=== PATIENT | female | born 1975 | race African-American/Black ===

== ENCOUNTER 2016-05-08 09:55 | Emergency (ER) | payer OTHER ==
[~2016-05-08] VITALS: Ht 142.2 cm; Wt 107.0 kg
[2016-05-08 10:56] LABS: BASO # 0.1 x10^3/uL (0.0-0.2); BASO % 1 % (0-3); EOS % 3 % (0-3); HEMATOCRIT 45.8 % (36.0-47.0); HEMOGLOBIN 15.3 g/dL (12.0-15.5); LYMPH # 4.6 x10^3/uL (1.0-4.8); LYMPH % 36 % (24-48); MEAN CORPUSCULAR HEMOGLOBIN 31 pg (25-35); MEAN CORPUSCULAR HGB CONC 33 g/dL (31-37); MEAN CORPUSCULAR VOLUME 93 fL (79-100); MONO % 8 % (0-9); NEUT % 52 % (31-73); PLATELET COUNT 302 x10^3/uL (140-400); RED BLOOD COUNT 4.91 x10^6/uL (3.50-5.40); RED CELL DISTRIBUTION WIDTH 14.6 % (11.5-14.5); WHITE BLOOD COUNT 12.6 x10^3/uL (4.0-11.0)
--- NOTE | 2016-05-08 10:58 | RAD ---
Chest, 2 views, 05/08/2016: History: Chest pain Comparison is made to a study from 03/25/2007. The heart is at the upper limits of normal in size. The pulmonary vascularity is normal. No pulmonary infiltrates are seen. There is no evidence of pleural fluid. Minimal spurring is present in the spine. IMPRESSION: No acute cardiopulmonary abnormality is detected.
[2016-05-08] MEDS ORDERED: ASPIRIN 81 MG TAB.CHEW PO ONE (11:00)
[2016-05-08] MEDS ORDERED: LABETALOL 20 MG/4 ML DISP.SYRIN. IVP ONE ×2 (11:00→11:15)
[2016-05-08 11:05] LABS: ANION GAP 8 (6-14); BLOOD UREA NITROGEN 13 mg/dL (7-20); CALCIUM 9.3 mg/dL (8.5-10.1); CARBON DIOXIDE 28 mmol/L (21-32); CHLORIDE 105 mmol/L (98-107); CREATININE 0.7 mg/dL (0.6-1.0); GFR 112.1; GLUCOSE 95 mg/dL (70-99); POTASSIUM 3.9 mmol/L (3.5-5.1); SODIUM 141 mmol/L (136-145)
[2016-05-08 11:12] LABS: ALBUMIN 3.5 g/dL (3.4-5.0); ALK PHOS 100 U/L (46-116); ALT (SGPT) 23 U/L (14-59); AST (SGOT) 17 U/L (15-37); DIRECT BILIRUBIN < 0.1 mg/dL (0.0-0.2); TOTAL BILIRUBIN 0.2 mg/dL (0.2-1.0); TOTAL PROTEIN 7.8 g/dL (6.4-8.2)
[2016-05-08 11:14] LABS: OBC FLU VALID
[2016-05-08] MEDS ORDERED: ALBUTEROL SULFATE 2.5 MG/3 ML NEBU. NEB ONE (11:15)
--- NOTE | 2016-05-08 11:15 | PHYS DOC ---
Adult General Chief Complaint Chief Complaint: CHEST WALL PAIN HPI HPI 40-year-old female presenting to the emergency department with cough fever or muscle aches and chills at home. She also complains of chest pain that is sharp moderate pain that is nonradiating and worse with deep inspiration. She denies any personal or family history of blood clotting disorders. She denies recent immobilization, hemoptysis, unilateral leg swelling. She has a history of hypertension and has hyperlipidemia for which she takes a statin. Review of systems is negative for abdominal pain nausea vomiting or diaphoresis. All other review of systems is negative unless otherwise noted in history of present illness. Review of Systems Review of Systems SEE ABOVE. Current Medications Current Medications Current Medications Medications (Trade) Dose Ordered Sig/Emily Start Time Stop Time Status Last Admin Dose Admin Albuterol Sulfate (Ventolin Neb Soln) 2.5 mg 1X ONCE 05/08/16 11:15 05/08/16 11:19 DC 05/08/16 11:19 2.5 MG Aspirin (Children'S Aspirin) 324 mg 1X ONCE 05/08/16 11:00 05/08/16 11:01 DC 05/08/16 10:32 324 MG Labetalol HCl (Normodyne) 20 mg 1X ONCE 05/08/16 11:15 05/08/16 11:16 DC Allergies Allergies Allergies Coded Allergies Type Severity Reaction Last Updated Verified adhesive Allergy Intermediate 05/08/16 No Physical Exam Physical Exam Constitutional: Well developed, well nourished, no acute distress, non-toxic appearance. HENT: Normocephalic, atraumatic, bilateral external ears normal, oropharynx moist, no oral exudates, nose normal. [] Eyes: PERRLA, EOMI, conjunctiva normal, no discharge. Neck: Normal range of motion, no tenderness, supple, no stridor. [] Cardiovascular:Heart rate regular rhythm, no murmur [] Lungs & Thorax: Mild wheezing bilaterally. No crackles present. Abdomen: Bowel sounds normal, soft, no tenderness, no masses, no pulsatile masses. Skin: Warm, dry, no erythema, no rash. [] Back: No tenderness, no CVA tenderness. [] Extremities: No tenderness, no cyanosis, no clubbing, ROM intact, no edema. Neurologic: Alert and oriented X 3, normal motor function, normal sensory function, no focal deficits noted. [] Psychologic: Affect normal, judgement normal, mood normal. [] Current Patient Data Vital Signs Vital Signs Date Time Temp Pulse Resp B/P Pulse Ox O2 Delivery O2 Flow Rate FiO2 05/08/16 10:38 63 206/118 94 Lab Values Laboratory Tests Test 05/08/16 10:04 05/08/16 10:10 Influenza Type A Antigen Negative (NEGATIVE) Influenza Type B Antigen Negative (NEGATIVE) White Blood Count 12.6x10^3/uL (4.0-11.0) H Red Blood Count 4.91x10^6/uL (3.50-5.40) Hemoglobin 15.3g/dL (12.0-15.5) Hematocrit 45.8% (36.0-47.0) Mean Corpuscular Volume 93fL (79-100) Mean Corpuscular Hemoglobin 31pg (25-35) Mean Corpuscular Hemoglobin Concent 33g/dL (31-37) Red Cell Distribution Width 14.6% (11.5-14.5) H Platelet Count 302x10^3/uL (140-400) Neutrophils (%) (Auto) 52% (31-73) Lymphocytes (%) (Auto) 36% (24-48) Monocytes (%) (Auto) 8% (0-9) Eosinophils (%) (Auto) 3% (0-3) Basophils (%) (Auto) 1% (0-3) Neutrophils # (Auto) 6.5x10^3uL (1.8-7.7) Lymphocytes # (Auto) 4.6x10^3/uL (1.0-4.8) Monocytes # (Auto) 1.1x10^3/uL (0.0-1.1) Eosinophils # (Auto) 0.4x10^3/uL (0.0-0.7) Basophils # (Auto) 0.1x10^3/uL (0.0-0.2) Sodium Level 141mmol/L (136-145) Potassium Level 3.9mmol/L (3.5-5.1) Chloride Level 105mmol/L (98-107) Carbon Dioxide Level 28mmol/L (21-32) Anion Gap 8 (6-14) Blood Urea Nitrogen 13mg/dL (7-20) Creatinine 0.7mg/dL (0.6-1.0) Estimated GFR (Cockcroft-Gault) 112.1 Glucose Level 95mg/dL (70-99) Calcium Level 9.3mg/dL (8.5-10.1) Total Bilirubin 0.2mg/dL (0.2-1.0) Direct Bilirubin < 0.1mg/dL (0.0-0.2) Aspartate Amino Transferase (AST) 17U/L (15-37) Alanine Aminotransferase (ALT) 23U/L (14-59) Alkaline Phosphatase 100U/L (46-116) Troponin I Quantitative < 0.017ng/mL (0.000-0.055) PW-Ufe-G-Type Natriuretic Peptide 36pg/mL (0-124) Total Protein 7.8g/dL (6.4-8.2) Albumin 3.5g/dL (3.4-5.0) Lipase 131U/L (73-393) Laboratory Tests 05/08/16 10:10 Laboratory Tests 05/08/16 10:10 EKG EKG []EKG shows sinus rhythm with regular rate. Normal intervals. Normal axis. ST segments are congruent. Not suggestive of ACS. Reviewed by myself. Radiology/Procedures Radiology/Procedures [] Course & Med Decision Making Course & Med Decision Making Pertinent Labs and Imaging studies reviewed. (See chart for details) [] 40-year-old female presenting to the emergency department with cough congestion fevers muscle aches and chest pain. Vitals showed significant hypertension which improved on labetalol administration. Otherwise afebrile. Physical exam showed mild wheezing in the lungs. Otherwise EKG was unremarkable. Blood work shows nonspecific leukocytosis. Chemistry panel. Troponin negative. The patient was given an albuterol nebulizer while in the emergency department which mildly improved her symptoms. Chest x-ray neg. On reevaluation she was feeling mildly improved. She was subsequent discharged home to follow up with her primary care doctor for further evaluation workup and care in the outpatient setting over the next 2-3 days. I recommended the patient follow up with her primary care doctor for blood pressure management. Dragon Disclaimer Dragon Disclaimer This electronic medical record was generated, in whole or in part, using a voice recognition dictation system. Departure Departure Impression: Primary Impression: Cough Additional Impressions: Muscle ache Rhinorrhea Chest pain Severe hypertension Disposition: HOME, SELF-CARE Condition: STABLE Referrals: VALERI MCCARTY (PCP) Patient Instructions: Chest Pain (Nonspecific), Cough, Adult Additional Instructions: Thank you for allowing us to participate in your care today. Followup with your primary care physician in 3 days if your symptoms do not improve. If you do not have a primary care provider you can ask for a list of our primary care providers. Return to the emergency department you have any new or concerning findings. This should be evaluated by the primary care physician and any necessary consulting services for continued management within a few days after discharge. Return to emergency room if you have any new or concerning symptoms including but not limited to fever, chills, nausea, vomiting, intractable pain, any new rashes, chest pain, shortness of air, uncontrolled bleeding, difficulty breathing, and/or vision loss. Problem Qualifiers MC MACDONALD MD May 08, 2016 11:15
[2016-05-08 11:46] VITALS: BP 102/65
--- NOTE | 2016-05-08 14:20 | EKG ---
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
== END 2016-05-08 12:18 | disposition home or self-care (01) ==
LOC: ER 09:55
DX: R05 Cough (principal); R07.89 Other chest pain; M79.1 Myalgia; J34.89 Other specified disorders of nose and nasal sinuses; I10 Essential (primary) hypertension; E78.5 Hyperlipidemia, unspecified; R50.9 Fever, unspecified; Z88.8 Allergy status to other drugs, medicaments and biological substances
CPT/HCPCS: 36415; 71020; 80048; 80076; 81025; 83690; 83880; 84484; 85027; 87804; 93005; 94250; 94640; 96374; 96376; 99285; J3490

== ENCOUNTER 2017-07-02 10:46 | Emergency (ER) | payer OTHER | END 2017-07-02 13:45 | disposition home or self-care (01) | LOC: ER 10:46 | DX: I73.9 Peripheral vascular disease, unspecified (principal); I10 Essential (primary) hypertension; E78.00 Pure hypercholesterolemia, unspecified; Z90.710 Acquired absence of both cervix and uterus; Z88.8 Allergy status to other drugs, medicaments and biological substances | CPT/HCPCS: 93926; 93971; 99284-25 ==

== ENCOUNTER 2019-01-20 11:50 | Emergency (ER) | payer OTHER ==
[~2019-01-20] VITALS: Ht 142.2 cm; Wt 101.2 kg
[~2019-01-20 11:50] MED LIST: ACET325T9 PO; CITA20TA6 PO; HYDR25TA PO; IBUP-1060 PO; LEVO500T59 PO; LURA60TA PO; PRED20TA PO; TRAZ-86 PO; amlodipine PO; lisinopril-HCTZ PO
[2019-01-20] MEDS ORDERED: amLODIPine BESYLATE 5 MG TABLET PO ONE (12:00)
[2019-01-20] MEDS ORDERED: ASPIRIN 325 MG TABLET PO ONE (12:00)
[2019-01-20] MEDS ORDERED: LISINOPRIL 10 MG TABLET PO ONE (12:00)
[2019-01-20] MEDS ORDERED: NITROGLYCERIN SUBLINGUAL 0.4 MG BOTTLE OF 25. SL PRN (12:00)
[2019-01-20] MEDS ORDERED: hydroCHLOROthiazide 12.5 MG CAPSULE PO ONE (12:00)
[2019-01-20] MEDS ORDERED: MORPHINE SULFATE 2 MG/ML VIAL. IV/SQ PRN (12:00)
--- NOTE | 2019-01-20 12:22 | PHYS DOC ---
Past Medical History Past Medical History: Anxiety, Depression, High Cholesterol, Hypertension Past Surgical History: , Hysterectomy Additional Past Surgical Histo: Ankle Alcohol Use: None Drug Use: None Adult General Chief Complaint Chief Complaint: CHEST PAIN HPI HPI Patient is a 43 year old female with a history of anxiety, depression, high cholesterol, hypertension, current smoker, who presents to the ED today complaining of 10 out of 10 substernal chest pain nonradiating and described as sharp and intermittent that has been going on since 3 AM. Patient states the pain was worse this morning when she got up to use the bathroom. She denies the pain waking her up. She states she was already up trying to use the restroom specifically to void when the pain began. Denies anything specifically elevating the pain. She also reports she is out of her blood pressure medicines. She has been out for the last 2 weeks Review of Systems Review of Systems Constitutional: Denies fever or chills [] Eyes: Denies change in visual acuity, redness, or eye pain [] HENT: Denies nasal congestion or sore throat [] Respiratory: Denies cough or shortness of breath [] Cardiovascular: Reports chest pain GI: Denies abdominal pain, nausea, vomiting, bloody stools or diarrhea [] : Denies dysuria or hematuria [] Musculoskeletal: Denies back pain or joint pain [] Integument: Denies rash or skin lesions [] Neurologic: Denies headache, focal weakness or sensory changes [] All other systems were reviewed and found to be within normal limits, except as documented in this note. Current Medications Current Medications Current Medications Medications (Trade) Dose Ordered Sig/[facility] Start Time Stop Time Status Last Admin Dose Admin Amlodipine Besylate (Norvasc) 10 mg 1X ONCE 01/20/19 12:00 01/20/19 12:05 DC 01/20/19 12:46 10 MG Aspirin (Soco Aspirin) 325 mg 1X ONCE 01/20/19 12:00 01/20/19 12:05 DC 01/20/19 12:46 325 MG Hydrochlorothiazide (Microzide) 12.5 mg 1X ONCE 01/20/19 12:00 01/20/19 12:05 DC 01/20/19 12:44 12.5 MG Lisinopril (Prinivil) 10 mg 1X ONCE 01/20/19 12:00 01/20/19 12:05 DC 01/20/19 12:45 10 MG Morphine Sulfate (Morphine Sulfate) 2 mg PRN Q15MIN PRN 01/20/19 12:00 01/21/19 11:59 Nitroglycerin (Nitrostat) 0.4 mg PRN Q5MIN PRN 01/20/19 12:00 01/21/19 11:59 Allergies Allergies Allergies Coded Allergies Type Severity Reaction Last Updated Verified adhesive Allergy Intermediate 06/15/17 Yes Physical Exam Physical Exam Constitutional: Well developed, well nourished, no acute distress, non-toxic appearance. [] HENT: Normocephalic, atraumatic, bilateral external ears normal, oropharynx moist, no oral exudates, nose normal. [] Eyes: PERRLA, EOMI, conjunctiva normal, no discharge. [] Neck: Normal range of motion, no tenderness, supple, no stridor. [] Cardiovascular:Heart rate regular rhythm, no murmur [] Lungs & Thorax: Bilateral breath sounds clear to auscultation [] Abdomen: Bowel sounds normal, soft, no tenderness, no masses, no pulsatile masses. [] Skin: Warm, dry, no erythema, no rash. [] Back: No tenderness, no CVA tenderness. [] Extremities: No tenderness, no cyanosis, no clubbing, ROM intact, no edema. [] Neurologic: Alert and oriented X 3, normal motor function, normal sensory function, no focal deficits noted. [] Psychologic: Affect normal, judgement normal, mood normal. [] Current Patient Data Vital Signs Vital Signs Date Time Temp Pulse Resp B/P (MAP) Pulse Ox O2 Delivery O2 Flow Rate FiO2 01/20/19 12:46 58 191/94 01/20/19 12:02 97.8 16 97 Room Air 97.8 Lab Values Laboratory Tests Test 01/20/19 12:37 01/20/19 13:35 01/20/19 15:21 White Blood Count 10.6 x10^3/uL (4.0-11.0) Red Blood Count 4.69 x10^6/uL (3.50-5.40) Hemoglobin 14.7 g/dL (12.0-15.5) Hematocrit 44.1 % (36.0-47.0) Mean Corpuscular Volume 94 fL (79-100) Mean Corpuscular Hemoglobin 31 pg (25-35) Mean Corpuscular Hemoglobin Concent 33 g/dL (31-37) Red Cell Distribution Width 14.5 % (11.5-14.5) Platelet Count 345 x10^3/uL (140-400) Neutrophils (%) (Auto) 61 % (31-73) Lymphocytes (%) (Auto) 31 % (24-48) Monocytes (%) (Auto) 6 % (0-9) Eosinophils (%) (Auto) 2 % (0-3) Basophils (%) (Auto) 1 % (0-3) Neutrophils # (Auto) 6.4 x10^3/uL (1.8-7.7) Lymphocytes # (Auto) 3.3 x10^3/uL (1.0-4.8) Monocytes # (Auto) 0.6 x10^3/uL (0.0-1.1) Eosinophils # (Auto) 0.2 x10^3/uL (0.0-0.7) Basophils # (Auto) 0.1 x10^3/uL (0.0-0.2) Sodium Level 143 mmol/L (136-145) Potassium Level 4.0 mmol/L (3.5-5.1) Chloride Level 106 mmol/L (98-107) Carbon Dioxide Level 27 mmol/L (21-32) Anion Gap 10 (6-14) Blood Urea Nitrogen 11 mg/dL (7-20) Creatinine 0.8 mg/dL (0.6-1.0) Estimated GFR (Cockcroft-Gault) 94.7 BUN/Creatinine Ratio 14 (6-20) Glucose Level 93 mg/dL (70-99) Calcium Level 9.2 mg/dL (8.5-10.1) Magnesium Level 2.0 mg/dL (1.8-2.4) Total Bilirubin 0.2 mg/dL (0.2-1.0) Aspartate Amino Transferase (AST) 24 U/L (15-37) Alanine Aminotransferase (ALT) 23 U/L (14-59) Alkaline Phosphatase 90 U/L (46-116) Creatine Kinase 131 U/L (26-192) Creatine Kinase MB (Mass) 0.8 ng/mL (0.0-3.6) Creatine Kinase MB Relative Index 0.6 % (0-4) Troponin I Quantitative < 0.017 ng/mL (0.000-0.055) TT-Sub-L-Type Natriuretic Peptide 150 pg/mL (0-124) H Total Protein 7.7 g/dL (6.4-8.2) Albumin 3.5 g/dL (3.4-5.0) Albumin/Globulin Ratio 0.8 (1.0-1.7) L Thyroid Stimulating Hormone (TSH) 0.935 uIU/mL (0.358-3.74) Urine Collection Type Unknown Urine Color Yellow Urine Clarity Clear Urine pH 7.5 Urine Specific [place] 1.020 Urine Protein Negative mg/dL (NEG-TRACE) Urine Glucose (UA) Negative mg/dL (NEG) Urine Ketones (Stick) Negative mg/dL (NEG) Urine Blood Negative (NEG) Urine Nitrite Negative (NEG) Urine Bilirubin Negative (NEG) Urine Urobilinogen Dipstick 1.0 mg/dL (0.2 mg/dL) Urine Leukocyte Esterase Small (NEG) Urine RBC Occ /HPF (0-2) Urine WBC 5-10 /HPF (0-4) Urine Squamous Epithelial Cells Mod /LPF Urine Bacteria Few /HPF (0-FEW) Urine Mucus Mod /LPF Urine Opiates Screen Neg (NEG) Urine Methadone Screen Neg (NEG) Urine Barbiturates Neg (NEG) Urine Phencyclidine Screen Neg (NEG) Urine Amphetamine/Methamphetamine Neg (NEG) Urine Benzodiazepines Screen Neg (NEG) Urine Cocaine Screen Neg (NEG) Urine Cannabinoids Screen Pos (NEG) Urine Ethyl Alcohol Neg (NEG) POC Troponin I 0.00 ng/ml (<0.08) Laboratory Tests 01/20/19 12:37 Laboratory Tests 01/20/19 12:37 EKG EKG [address] Campos sinus rhythm HR 64 no STEMI[] Radiology/Procedures Radiology/Procedures []PROCEDURE: PORTABLE CHEST 1V PORTABLE CHEST 1V 01/20/2019 11:35 AM INDICATION: Chest pain COMPARISON: 06/11/2017 TECHNIQUE: Portable frontal view of the chest is provided. FINDINGS: The cardiomediastinal silhouette is similar in appearance. Lungs are clear. There are no significant pleural effusions. There is no pulmonary vascular congestion. No pneumothorax. IMPRESSION: There is no acute cardiopulmonary process. Electronically signed by: Jackeline Short MD (01/20/2019 12:29 PM) [facility] DICTATED and SIGNED BY: JACKELINE SHORT MD DATE: 01/20/19 4834 Course & Med Decision Making Course & Med Decision Making Pertinent Labs and Imaging studies reviewed. (See chart for details) This is a 43-year-old female patient presented to the ED today complaining of substernal chest pain that began this morning at 3 AM, patient also reports she has not taken her blood pressure medications for 2 weeks. She states she ran out of the medications and has been too busy to see her PCP. She is a smoker advised to consider smoking cessation. Blood pressures on arrival to the ED 190's/ 90s. Patient was given her blood pressure medicines in the ED. BP was in the 140s over 80s prior to discharge. EKG is negative, chest x-ray is negative, CBC, CMP, troponin-no acute findings. Heart score 2 Patient was offered admission to the hospital, she declined stating she cannot stand the hospital because she will miss work tomorrow morning. Repeat troponin was also done which was negative I spoke to patient about the need to follow-up with her PCP as well as [facility]. She is provided return precautions and discharged in stable condition. Dragon Disclaimer Dragon Disclaimer This electronic medical record was generated, in whole or in part, using a voice recognition dictation system. The HEART Score for CP Pts HEART Score for Chest Pain: HEART Score for Chest Pain Response (Comments) Value History Slighlty/Non-Suspicious 0 ECG Normal 0 Age < 45 0 Risk Factors >3 Risk Factors or Hx CAD 2 Troponin < Normal Limit (allergies) 0 Total 2 Risk Factors: Risk Factors: DM, Current or recent (<one month) smoker, HTN, HLP, family history of CAD, obesity. Risk Scores: Score 0 - 3: 2.5% MACE over next 6 weeks - Discharge Home Score 4 - 6: 20.3% MACE over next 6 weeks - Admit for Clinical Observation Score 7 - 10: 72.7% MACE over next 6 weeks - Early Invasive Strategies Departure Departure Impression: Primary Impression: Chest pain Additional Impression: Accelerated hypertension Disposition: 01 HOME, SELF-CARE Condition: STABLE Referrals: VALERI MCCARTY (PCP) follow up in the course of this week JOS HAWKINS MD follow up in the course of this week Patient Instructions: Chest Pain (Nonspecific), Hypertension Additional Instructions: You were evaluated in the emergency room for chest pain and high blood pressure. Please follow-up with the provided [facility] as soon as possible. Please follow-up with your primary care doctor as soon as possible. Please take your prescribed medications as ordered. Scripts Amlodipine Besylate (AMLODIPINE BESYLATE) 10 Mg Tablet 10 MG PO DAILY, #30 TAB Prov: MICHAEL PEREZ APRN 01/20/19 Lisinopril/Hydrochlorothiazide (LISINOPRIL-HCTZ 10-12.5 MG TAB) 1 Each Tablet 1 TAB PO DAILY, #30 TAB 5 Refills Prov: MICHAEL PEREZ APRN 01/20/19 Problem Qualifiers Primary Impression: Chest pain Chest pain type: unspecified Qualified Codes: R07.9 - Chest pain, unspecified MICHAEL PEREZ APRN Jan 20, 2019 12:22
--- NOTE | 2019-01-20 12:32 | RAD ---
PORTABLE CHEST 1V 01/20/2019 11:35 AM INDICATION: Chest pain COMPARISON: 06/11/2017 TECHNIQUE: Portable frontal view of the chest is provided. FINDINGS: The cardiomediastinal silhouette is similar in appearance. Lungs are clear. There are no significant pleural effusions. There is no pulmonary vascular congestion. No pneumothorax. IMPRESSION: There is no acute cardiopulmonary process. Electronically signed by: Lauren Arnold MD (01/20/2019 12:29 PM) [facility]
[2019-01-20 12:51] LABS: BASO # 0.1 x10^3/uL (0.0-0.2); BASO % 1 % (0-3); EOS # 0.2 x10^3/uL (0.0-0.7); EOS % 2 % (0-3); HEMATOCRIT 44.1 % (36.0-47.0); HEMOGLOBIN 14.7 g/dL (12.0-15.5); LYMPH # 3.3 x10^3/uL (1.0-4.8); LYMPH % 31 % (24-48); MEAN CORPUSCULAR HEMOGLOBIN 31 pg (25-35); MEAN CORPUSCULAR HGB CONC 33 g/dL (31-37); MEAN CORPUSCULAR VOLUME 94 fL (79-100); MONO # 0.6 x10^3/uL (0.0-1.1); MONO % 6 % (0-9); NEUT # 6.4 x10^3/uL (1.8-7.7); NEUT % 61 % (31-73); PLATELET COUNT 345 x10^3/uL (140-400); RED BLOOD COUNT 4.69 x10^6/uL (3.50-5.40); RED CELL DISTRIBUTION WIDTH 14.5 % (11.5-14.5); WHITE BLOOD COUNT 10.6 x10^3/uL (4.0-11.0)
[2019-01-20 13:03] LABS: CALCIUM 9.2 mg/dL (8.5-10.1); CREATININE 0.8 mg/dL (0.6-1.0); GFR 94.7
[2019-01-20 13:08] LABS: ALBUMIN 3.5 g/dL (3.4-5.0); ALBUMIN/GLOBULIN RATIO 0.8 (1.0-1.7); TOTAL BILIRUBIN 0.2 mg/dL (0.2-1.0); TOTAL PROTEIN 7.7 g/dL (6.4-8.2)
[2019-01-20 13:43] LABS: BILIRUBIN,URINE NEGATIVE (NEG); CLARITY,URINE CLEAR; COLOR,URINE YELLOW; NITRITE,URINE NEGATIVE (NEG); PH,URINE 7.5; PROTEIN,URINE NEGATIVE (NEG-TRACE)
[2019-01-20 13:55] LABS: BARBITURATES NEG (NEG); BENZODIAZEPINES NEG (NEG); CANNABINOIDS POS (NEG); COCAINE NEG (NEG); METHADONE NEG (NEG); OPIATES NEG (NEG); PHENCYCLIDINE NEG (NEG)
[2019-01-20 13:58] LABS: SQUAMOUS EPITHELIAL CELL,UR MOD /LPF
[2019-01-20 13:59] LABS: AMPHETAMINE/METHAMPHETAMINE NEG (NEG); BACTERIA,URINE FEW /HPF (0-FEW); RBC,URINE OCC /HPF (0-2)
--- NOTE | 2019-01-20 14:32 | EKG ---
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
[2019-01-20 15:26] VITALS: BP 167/54
[2019-01-20] MEDS ORDERED: LISI1TAB23 PO (15:49)
[2019-01-20] MEDS ORDERED: AMLO10TA8 PO (15:49)
== END 2019-01-20 16:07 | disposition home or self-care (01) ==
LOC: ER 11:50
DX: R07.89 Other chest pain (principal); I10 Essential (primary) hypertension; F41.9 Anxiety disorder, unspecified; F32.9 Major depressive disorder, single episode, unspecified; E78.00 Pure hypercholesterolemia, unspecified; Z90.710 Acquired absence of both cervix and uterus
CPT/HCPCS: 36415; 71045; 80053; 80307; 81001; 82553; 83735; 83880; 84443; 84484; 85025; 93005; 99285

== ENCOUNTER 2021-08-08 07:39 | Inpatient (IN) | payer OTHER ==
[~2021-08-08] VITALS: Ht 142.2 cm; Wt 91.2 kg
[~2021-08-08 07:39] MED LIST changes: +AMLO-187 PO; +LISI1TAB35 PO; +TRAZ-123 PO; -TRAZ-86 PO
[2021-08-08] MEDS ORDERED: PANTOPRAZOLE IV PUSH 40 MG VIAL. IVP ONE (08:00)
[2021-08-08] MEDS ORDERED: LIDO:MAALOX 1:1 20 ML SINGLE DOSE. SWSW ONE (08:00)
[2021-08-08] MEDS ORDERED: IV NORMAL SALINE 1000ML BAG 1,000 ML IV ONE (08:00)
[2021-08-08] MEDS ORDERED: MORPHINE SULFATE 4 MG/ML INJ. IV PRN (08:00)
[2021-08-08] MEDS ORDERED: ONDANSETRON PF 4 MG/2 ML VIAL. IVP ONE (08:00)
--- NOTE | 2021-08-08 08:11 | PHYS DOC ---
Past Medical History Past Medical History: Anxiety, Depression, High Cholesterol, Hypertension Past Surgical History: , Hysterectomy Additional Past Surgical Histo: Ankle Smoking Status: Current Every Day Smoker Alcohol Use: None Drug Use: None Adult General Chief Complaint Chief Complaint: ABDOMINAL PAIN HPI HPI Patient is a 46 year old female presenting to the emergency department for epigastric and left upper quadrant abdominal pain that she says has been going on for at least the past 2 days. She says it is sharp and burning and is constant for the past 2 days and that nothing seems to make it better or worse including eating drinking movements or activity. She denies any nausea vomiting diarrhea constipation dysuria hematuria vaginal bleeding or vaginal discharge. She has had 2 prior C-sections but no other abdominal surgeries. She is in no acute distress with normal vital signs. Review of Systems Review of Systems Constitutional: Denies fever or chills [] Eyes: Denies change in visual acuity, redness, or eye pain [] HENT: Denies nasal congestion or sore throat [] Respiratory: Denies cough or shortness of breath [] Cardiovascular: No additional information not addressed in HPI [] GI: + abdominal pain. No nausea, vomiting, bloody stools or diarrhea [] : Denies dysuria or hematuria [] Musculoskeletal: Denies back pain or joint pain [] Integument: Denies rash or skin lesions [] Neurologic: Denies headache, focal weakness or sensory changes [] All other systems were reviewed and found to be within normal limits, except as documented in this note. Current Medications Current Medications Current Medications Medications (Trade) Dose Ordered Sig/Emily Start Time Stop Time Status Last Admin Dose Admin Ceftriaxone Sodium (Rocephin) 2 gm 1X ONCE 08/08/21 09:15 08/08/21 09:16 DC Morphine Sulfate (Morphine Sulfate) 4 mg 1X PRN 08/08/21 08:00 08/08/21 08:15 4 MG Multi-Ingredient Mouthwash/Gargle (Gi Cocktail) 20 ml 1X ONCE 08/08/21 08:00 08/08/21 08:01 DC 08/08/21 08:15 20 ML Ondansetron HCl (Zofran) 4 mg 1X ONCE 08/08/21 08:00 08/08/21 08:01 DC 08/08/21 08:14 4 MG Pantoprazole Sodium (PROTONIX VIAL for IV PUSH) 40 mg 1X ONCE 5/29/22 08:00 08/08/21 08:01 DC 08/08/21 08:14 40 MG Sodium Chloride 1,000 ml @ 1,000 mls/hr 1X ONCE 08/08/21 08:00 08/08/21 08:59 DC 08/08/21 08:16 1,000 MLS/HR Allergies Allergies Allergies Coded Allergies Type Severity Reaction Last Updated Verified adhesive Allergy Intermediate 06/15/17 Yes Physical Exam Physical Exam Constitutional: Well developed, well nourished, no acute distress, non-toxic appearance. [] HENT: Normocephalic, atraumatic, bilateral external ears normal, oropharynx mois t, no oral exudates, nose normal. [] Eyes: PERRLA, EOMI, conjunctiva normal, no discharge. [] Neck: Normal range of motion, no tenderness, supple, no stridor. [] Cardiovascular:Heart rate regular rhythm, no murmur [] Lungs & Thorax: Bilateral breath sounds clear to auscultation [] Abdomen: Bowel sounds normal, soft, + epigastric and LUQ ttp. No rebound or guarding. Skin: Warm, dry, no erythema, no rash. [] Back: No tenderness, no CVA tenderness. [] Extremities: No tenderness, no cyanosis, no clubbing, ROM intact, no edema. [] Neurologic: Alert and oriented X 3, normal motor function, normal sensory function, no focal deficits noted. [] Current Patient Data Vital Signs Vital Signs Date Time Temp Pulse Resp B/P (MAP) Pulse Ox O2 Delivery O2 Flow Rate FiO2 08/08/21 08:32 98.8 69 22 156/77 (103) 98 98.8 08/08/21 08:15 Room Air Lab Values Laboratory Tests Test 08/08/21 07:58 08/08/21 08:04 Urine Collection Type Unknown Urine Color (Auto) Yellow Urine Turbidity Hazy Urine pH (Auto) 6.5 (<5.0-8.0) Urine Specific [place] 1.013 (1.000-1.030) Urine Protein (Auto) 30 mg/dL (Negative) Urine Glucose (Auto)(UA) Negative mg/dL (Negative) Urine Ketones (Auto) Negative mg/dL (Negative) Urine Blood (Auto) Moderate (Negative) Urine Nitrite Negative (Negative) Urine Bilirubin (Auto) Negative (Negative) Urine Urobilinogen (Auto) Normal mg/dL (Normal) Urine Leukocyte Esterase (Auto) Large (Negative) Urine RBC Field obscured /HPF (0-2) Urine WBC Tntc /HPF (0-4) Urine Bacteria Moderate /HPF (0-FEW) White Blood Count 17.9 x10^3/uL (4.0-11.0) H Red Blood Count 4.39 x10^6/uL (3.50-5.40) Hemoglobin 14.2 g/dL (12.0-15.5) Hematocrit 41.7 % (36.0-47.0) Mean Corpuscular Volume 95 fL (79-100) Mean Corpuscular Hemoglobin 32 pg (25-35) Mean Corpuscular Hemoglobin Concent 34 g/dL (31-37) Red Cell Distribution Width 13.7 % (11.5-14.5) Platelet Count 379 x10^3/uL (140-400) Neutrophils (%) (Auto) 80 % (31-73) H Lymphocytes (%) (Auto) 10 % (24-48) L Monocytes (%) (Auto) 9 % (0-9) Eosinophils (%) (Auto) 1 % (0-3) Basophils (%) (Auto) 1 % (0-3) Neutrophils # (Auto) 14.2 x10^3/uL (1.8-7.7) H Lymphocytes # (Auto) 1.7 x10^3/uL (1.0-4.8) Monocytes # (Auto) 1.6 x10^3/uL (0.0-1.1) H Eosinophils # (Auto) 0.2 x10^3/uL (0.0-0.7) Basophils # (Auto) 0.1 x10^3/uL (0.0-0.2) Sodium Level 143 mmol/L (136-145) Potassium Level 3.7 mmol/L (3.5-5.1) Chloride Level 109 mmol/L (98-107) H Carbon Dioxide Level 25 mmol/L (21-32) Anion Gap 9 (6-14) Blood Urea Nitrogen 13 mg/dL (7-20) Creatinine 0.8 mg/dL (0.6-1.0) Estimated GFR (Cockcroft-Gault) 93.4 BUN/Creatinine Ratio 16 (6-20) Glucose Level 93 mg/dL (70-99) Calcium Level 9.0 mg/dL (8.5-10.1) Total Bilirubin 0.4 mg/dL (0.2-1.0) Aspartate Amino Transferase (AST) 14 U/L (15-37) L Alanine Aminotransferase (ALT) 18 U/L (14-59) Alkaline Phosphatase 92 U/L (46-116) Total Protein 5.9 g/dL (6.4-8.2) L Albumin 2.8 g/dL (3.4-5.0) L Albumin/Globulin Ratio 0.9 (1.0-1.7) L Lipase 43 U/L (73-393) L Laboratory Tests 08/08/21 08:04 Laboratory Tests 08/08/21 08:04 EKG EKG Sinus rhythm at 65 bpm with normal axis no ST elevation or depression and normal T waves. Radiology/Procedures Radiology/Procedures [] Course & Med Decision Making Course & Med Decision Making Patient has abdominal tenderness to palpations I will check labs and imaging treat symptoms and reassess. I suspect patient's pain is most likely from the enteritis seen on the CT however there is significant leukocytosis with abnormal urinalysis indicative that she may have a pyelonephritis. Patient says that she is still uncomfortable and I discussed inpatient versus outpatient treatment options and she stated given her discomfort she would rather be admitted to the hospital. I we will start her on Rocephin and have her admitted for further observation and treatment. Patiently does technically meet sepsis criteria but she has a normal blood pressure. Dragon Disclaimer Dragon Disclaimer This electronic medical record was generated, in whole or in part, using a voice recognition dictation system. Departure Departure Impression: Primary Impression: Pyelonephritis Additional Impressions: Enteritis Sepsis Disposition: ADMITTED INPATIENT Admitting Physician: HALINA (Mahamed) Condition: STABLE Referrals: VALERI MCCARTY (PCP) Problem Qualifiers WALKER NASSAR DO August 08, 2021 08:11
[2021-08-08 08:28] LABS: BASO # 0.1 x10^3/uL (0.0-0.2); BASO % 1 % (0-3); EOS # 0.2 x10^3/uL (0.0-0.7); EOS % 1 % (0-3); HEMATOCRIT 41.7 % (36.0-47.0); HEMOGLOBIN 14.2 g/dL (12.0-15.5); LYMPH # 1.7 x10^3/uL (1.0-4.8); LYMPH % 10 % (24-48); MEAN CORPUSCULAR HEMOGLOBIN 32 pg (25-35); MEAN CORPUSCULAR HGB CONC 34 g/dL (31-37); MEAN CORPUSCULAR VOLUME 95 fL (79-100); MONO # 1.6 x10^3/uL (0.0-1.1); MONO % 9 % (0-9); NEUT # 14.2 x10^3/uL (1.8-7.7); NEUT % 80 % (31-73); PLATELET COUNT 379 x10^3/uL (140-400); RED BLOOD COUNT 4.39 x10^6/uL (3.50-5.40); RED CELL DISTRIBUTION WIDTH 13.7 % (11.5-14.5); WHITE BLOOD COUNT 17.9 x10^3/uL (4.0-11.0)
[2021-08-08 08:36] LABS: CREATININE 0.8 mg/dL (0.6-1.0); GFR 93.4; POTASSIUM 3.7 mmol/L (3.5-5.1)
[2021-08-08 08:42] LABS: BACTERIA,URINE MODERATE /HPF (0-FEW); RBC,URINE FIELD OBSCURED /HPF (0-2); WBC,URINE TNTC /HPF (0-4)
[2021-08-08 08:43] LABS: ALBUMIN 2.8 g/dL (3.4-5.0); ALBUMIN/GLOBULIN RATIO 0.9 (1.0-1.7); TOTAL BILIRUBIN 0.4 mg/dL (0.2-1.0); TOTAL PROTEIN 5.9 g/dL (6.4-8.2)
--- NOTE | 2021-08-08 08:54 | RAD ---
CT ABDOMEN+PELVIS WO History: Epigastric and left upper quadrant pain Comparison: CT chest 06/13/2017. Technique: Noncontrast CT of the abdomen and pelvis. Findings: There is patchy nodular consolidation along the right middle lobe. No pleural effusion. The liver, gallbladder, pancreas, spleen, adrenal glands, and kidneys are unremarkable. The stomach is within normal limits. Nonspecific bowel wall thickening in the left upper quadrant jej unal loops. No abnormal small bowel distention or evidence of obstruction. The colon is within normal limits. The bladder is normal. Postsurgical changes from hysterectomy. Right ovarian cyst/follicle measuring 2.7 cm diameter. No intra-abdominal or pelvic free air or free fluid. No adenopathy. 6 mild iliac ath erosclerotic calcification. No aneurysm. Tiny fat-containing umbilical hernia. Osseous structures are within normal limits for age. Pseudoarticulation of the transverse processes of L5 with the sacrum. Impression: 1. Nonspecific wall thickening in the left upper abdomen jejunal loops may represent enteritis. No e vidence of obstruction. 2. Mild patchy/nodular consolidation in the right middle lobe. Recommend follow-up noncontrast CT ch est in 3 months to evaluate for resolution. ------ Exposure: One or more of the following individualized dose reduction techniques were utilized for thi s examination: 1. Automated exposure control 2. Adjustment of the mA and/or kV according to patient size 3. Use of iterative reconstruction technique. Electronically signed by: Sanjay Lovett MD (08/08/2021 8:51 AM) [id number]
[2021-08-08] MEDS ORDERED: cefTRIAXone IV Push 1 GM VIAL. IVP ONE (09:15)
[2021-08-08] MEDS ORDERED: ZOLPIDEM 5 MG TABLET. PO PRN (11:15)
[2021-08-08] MEDS ORDERED: SENNOSIDES 8.6 MG TABLET PO PRN (11:15)
[2021-08-08] MEDS ORDERED: DOCUSATE SODIUM 100 MG CAPSULE. PO PRN (11:15)
[2021-08-08] MEDS ORDERED: PROCHLORPERAZINE 10 MG/2 ML VIAL. IV PRN (11:15)
[2021-08-08] MEDS ORDERED: DEXTROSE 50% 25 GM / 50ML DISP.SYRIN. IV PRN (11:15)
[2021-08-08] MEDS ORDERED: LORazepam 0.5 MG TABLET PO PRN (11:15)
[2021-08-08] MEDS ORDERED: MORPHINE SULFATE 2 MG/ML INJ. IVP PRN (11:15)
[2021-08-08] MEDS ORDERED: ONDANSETRON PF 4 MG/2 ML VIAL. IVP PRN (11:15)
[2021-08-08] MEDS ORDERED: ACETAMINOPHEN 325 MG TABLET. PO PRN (11:15)
[2021-08-08] MEDS ORDERED: diphenhydrAMINE 50 MG/ML VIAL IVP PRN (11:15)
[2021-08-08] MEDS ORDERED: diphenhydrAMINE HCL 25 MG CAPSULE PO PRN ×2 (11:15)
[2021-08-08] MEDS ORDERED: MORPHINE SULFATE 2 MG/ML INJ. IV PRN (11:15)
--- NOTE | 2021-08-08 11:16 | PDOC1 ---
History and Physical Date of Service: DOS: DATE: 08/08/21 TIME: 11:06 Chief Complaint: Chief Complain: Abdominal pain History of Present Illness: HPI: 46 year old female presenting to the emergency department for epigastric and left upper quadrant abdominal pain that she says has been going on for at least the past 2 days. She says it is sharp and burning and is constant for the past 2 days and that nothing seems to make it better or worse including eating drinking movements or activity. Patient did say that she had a bloody bowel movement this morning that she normally has never had. Her last bowel movement was 3 days ago. She has never had constipation issues and has always been regular with her bowel movements. She denies any nausea vomiting diarrhea constipation dysuria hematuria vaginal bleeding or vaginal discharge. She has had 2 prior C-sections but no other abdominal surgeries. She is in no acute distress with normal vital signs. Past Medical/Surgical History: PMH/PSH: Past Medical History: Anxiety, Depression, High Cholesterol, Hypertension Past Surgical History: , Hysterectomy, Ankle Allergies: Allergies: Coded Allergies: adhesive (Verified Allergy, Intermediate, 06/15/17) Family History: Family History: Reviewed with no relative findings in the chart Social History: Social History: Smoking Status: Current Every Day Smoker Alcohol Use: None Drug Use: None Current Medications: Current Medications Current Medications Ondansetron HCl (Zofran) 4 mg 1X ONCE IVP Last administered on 08/08/21at 08:14; Start 08/08/21 at 08:00; Stop 08/08/21 at 08:01; Status DC Pantoprazole Sodium (PROTONIX VIAL for IV PUSH) 40 mg 1X ONCE IVP Last administered on 08/08/21at 08:14; Start 08/08/21 at 08:00; Stop 08/08/21 at 08:01; Status DC Multi-Ingredient Mouthwash/Gargle (Gi Cocktail) 20 ml 1X ONCE SWSW Last administered on 08/08/21at 08:15; Start 08/08/21 at 08:00; Stop 08/08/21 at 08:01; Status DC Morphine Sulfate (Morphine Sulfate) 4 mg 1X PRN IV PAIN Last administered on 08/08/21at 08:15; Start 08/08/21 at 08:00 Sodium Chloride 1,000 ml @ 1,000 mls/hr 1X ONCE IV Last administered on 08/08/21at 08:16; Start 08/08/21 at 08:00; Stop 08/08/21 at 08:59; Status DC Ceftriaxone Sodium (Rocephin) 2 gm 1X ONCE IVP Last administered on 08/08/21at 10:03; Start 08/08/21 at 09:15; Stop 08/08/21 at 09:16; Status DC Active Scripts Active Amlodipine Besylate 10 Mg Tablet 10 Mg PO DAILY Lisinopril-Hctz 10-12.5 Mg Tab (Lisinopril/Hydrochlorothiazide) 1 Each Tablet 1 Tab PO DAILY Levaquin (Levofloxacin) 500 Mg Tablet 500 Mg PO DAILY 8 Days Prednisone 20 Mg Tablet 20 Mg PO DAILY 4 Days Reported Tylenol (Acetaminophen) 325 Mg Tablet 325 Mg PO Q6HRS PRN Hydroxyzine Hcl 25 Mg Tablet 50 Mg PO TID [lisinopril-HCTZ] 20/12.5 Mg PO BID [amlodipine] 10 Mg 10 PO DAILY Latuda (Lurasidone Hcl) 60 Mg Tablet 60 Mg PO DAILY Citalopram Hbr (Citalopram Hydrobromide) 20 Mg Tablet 1 Tab PO DAILY Trazodone Hcl 100 Mg Tablet 1 Tab PO QHS ROS: Review of Systems Review of System REVIEW OF SYSTEMS: GENERAL: Denies weakness SKIN: No bruising, hair changes or rashes. EYES: No blurred, double or loss of vision. NOSE AND THROAT: No history of nosebleeds, hoarseness or sore throat. HEART: No history of palpitations, chest pain or shortness of breath on exertion. LUNGS: Denies cough, hemoptysis, wheezing or shortness of breath. GASTROINTESTINAL: Denies changes in appetite, nausea, vomiting, diarrhea or constipation. GENITOURINARY: No history of frequency, urgency, hesitancy or nocturia. NEUROLOGIC: Denies history of numbness, tingling, or tremor. PSYCHIATRIC: No history of panic, anxiety or depression. ENDOCRINE: No history of heat or cold intolerance, polyuria or polydipsia. EXTREMITIES: Denies joint pain, pain on walking or stiffness. Physical Exam: Vital Signs: Vital Signs Date Time Temp Pulse Resp B/P (MAP) Pulse Ox O2 Delivery O2 Flow Rate FiO2 08/08/21 10:32 68 23 140/65 (90) 94 Room Air 08/08/21 10:06 98.8 98.8 Physcial Exam: GEN: No apparent distress. Alert and oriented HEENT: Normal cephalic, atraumatic, external auditory canals are patent EYES: Extraocular muscles are intact, pupil are equally round and reactive to light and accommodation MUSCULOSKELETAL: Well developed , well nourished, good range of motion ENDOCRINE: No thyromegaly was palpated LYMPHATICS: No cervical chain or axillary nodes were noted HEMATOPOIETIC: No bruising NECK: Supple, no JVD, no thyromegaly was noted LUNGS: Clear to auscultation in all lung t[place]arez without rhonchi or wheezing HEART: RRR, S!, S2 present. Peripheral pulses intact, no obvious murmurs noted ABDOMEN: Soft, nontender. Positive bowel sounds, no organomegaly, normal bowel sounds EXTREMITIES: Without clubbing, cyanosis, or edema. Pedal pulses intact. Negative Homans sign NEUROLOGIC: Normal speech and tone. A&O x 3, moves all extremities, no obvious focal deficits PSYCHIATRIC: Normal affect, normal mood. Stable SKIN: No ulcerations or rashes, good skin turgor, no jaundice VASCULAR: Good capillary refill, neurovascular bundle appears to be intact Labs: Labs: Laboratory Tests Test 08/08/21 07:58 08/08/21 08:04 Urine Collection Type Unknown Urine Color (Auto) Yellow Urine Turbidity Hazy Urine pH (Auto) 6.5 (<5.0-8.0) Urine Specific [place] 1.013 (1.000-1.030) Urine Protein (Auto) 30 mg/dL (Negative) Urine Glucose (Auto)(UA) Negative mg/dL (Negative) Urine Ketones (Auto) Negative mg/dL (Negative) Urine Blood (Auto) Moderate (Negative) Urine Nitrite Negative (Negative) Urine Bilirubin (Auto) Negative (Negative) Urine Urobilinogen (Auto) Normal mg/dL (Normal) Urine Leukocyte Esterase (Auto) Large (Negative) Urine RBC Field obscured /HPF (0-2) Urine WBC Tntc /HPF (0-4) Urine Bacteria Moderate /HPF (0-FEW) White Blood Count 17.9 x10^3/uL (4.0-11.0) Red Blood Count 4.39 x10^6/uL (3.50-5.40) Hemoglobin 14.2 g/dL (12.0-15.5) Hematocrit 41.7 % (36.0-47.0) Mean Corpuscular Volume 95 fL (79-100) Mean Corpuscular Hemoglobin 32 pg (25-35) Mean Corpuscular Hemoglobin Concent 34 g/dL (31-37) Red Cell Distribution Width 13.7 % (11.5-14.5) Platelet Count 379 x10^3/uL (140-400) Neutrophils (%) (Auto) 80 % (31-73) Lymphocytes (%) (Auto) 10 % (24-48) Monocytes (%) (Auto) 9 % (0-9) Eosinophils (%) (Auto) 1 % (0-3) Basophils (%) (Auto) 1 % (0-3) Neutrophils # (Auto) 14.2 x10^3/uL (1.8-7.7) Lymphocytes # (Auto) 1.7 x10^3/uL (1.0-4.8) Monocytes # (Auto) 1.6 x10^3/uL (0.0-1.1) Eosinophils # (Auto) 0.2 x10^3/uL (0.0-0.7) Basophils # (Auto) 0.1 x10^3/uL (0.0-0.2) Sodium Level 143 mmol/L (136-145) Potassium Level 3.7 mmol/L (3.5-5.1) Chloride Level 109 mmol/L (98-107) Carbon Dioxide Level 25 mmol/L (21-32) Anion Gap 9 (6-14) Blood Urea Nitrogen 13 mg/dL (7-20) Creatinine 0.8 mg/dL (0.6-1.0) Estimated GFR (Cockcroft-Gault) 93.4 BUN/Creatinine Ratio 16 (6-20) Glucose Level 93 mg/dL (70-99) Lactic Acid Level 0.5 mmol/L (0.4-2.0) Calcium Level 9.0 mg/dL (8.5-10.1) Total Bilirubin 0.4 mg/dL (0.2-1.0) Aspartate Amino Transf (AST/SGOT) 14 U/L (15-37) Alanine Aminotransferase (ALT/SGPT) 18 U/L (14-59) Alkaline Phosphatase 92 U/L (46-116) Total Protein 5.9 g/dL (6.4-8.2) Albumin 2.8 g/dL (3.4-5.0) Albumin/Globulin Ratio 0.9 (1.0-1.7) Lipase 43 U/L (73-393) Laboratory Tests Test 08/08/21 07:58 08/08/21 08:04 Urine Collection Type Unknown Urine Color (Auto) Yellow Urine Turbidity Hazy Urine pH (Auto) 6.5 (<5.0-8.0) Urine Specific [place] 1.013 (1.000-1.030) Urine Protein (Auto) 30 mg/dL (Negative) Urine Glucose (Auto)(UA) Negative mg/dL (Negative) Urine Ketones (Auto) Negative mg/dL (Negative) Urine Blood (Auto) Moderate (Negative) Urine Nitrite Negative (Negative) Urine Bilirubin (Auto) Negative (Negative) Urine Urobilinogen (Auto) Normal mg/dL (Normal) Urine Leukocyte Esterase (Auto) Large (Negative) Urine RBC Field obscured /HPF (0-2) Urine WBC Tntc /HPF (0-4) Urine Bacteria Moderate /HPF (0-FEW) White Blood Count 17.9 x10^3/uL (4.0-11.0) Red Blood Count 4.39 x10^6/uL (3.50-5.40) Hemoglobin 14.2 g/dL (12.0-15.5) Hematocrit 41.7 % (36.0-47.0) Mean Corpuscular Volume 95 fL (79-100) Mean Corpuscular Hemoglobin 32 pg (25-35) Mean Corpuscular Hemoglobin Concent 34 g/dL (31-37) Red Cell Distribution Width 13.7 % (11.5-14.5) Platelet Count 379 x10^3/uL (140-400) Neutrophils (%) (Auto) 80 % (31-73) Lymphocytes (%) (Auto) 10 % (24-48) Monocytes (%) (Auto) 9 % (0-9) Eosinophils (%) (Auto) 1 % (0-3) Basophils (%) (Auto) 1 % (0-3) Neutrophils # (Auto) 14.2 x10^3/uL (1.8-7.7) Lymphocytes # (Auto) 1.7 x10^3/uL (1.0-4.8) Monocytes # (Auto) 1.6 x10^3/uL (0.0-1.1) Eosinophils # (Auto) 0.2 x10^3/uL (0.0-0.7) Basophils # (Auto) 0.1 x10^3/uL (0.0-0.2) Sodium Level 143 mmol/L (136-145) Potassium Level 3.7 mmol/L (3.5-5.1) Chloride Level 109 mmol/L (98-107) Carbon Dioxide Level 25 mmol/L (21-32) Anion Gap 9 (6-14) Blood Urea Nitrogen 13 mg/dL (7-20) Creatinine 0.8 mg/dL (0.6-1.0) Estimated GFR (Cockcroft-Gault) 93.4 BUN/Creatinine Ratio 16 (6-20) Glucose Level 93 mg/dL (70-99) Lactic Acid Level 0.5 mmol/L (0.4-2.0) Calcium Level 9.0 mg/dL (8.5-10.1) Total Bilirubin 0.4 mg/dL (0.2-1.0) Aspartate Amino Transf (AST/SGOT) 14 U/L (15-37) Alanine Aminotransferase (ALT/SGPT) 18 U/L (14-59) Alkaline Phosphatase 92 U/L (46-116) Total Protein 5.9 g/dL (6.4-8.2) Albumin 2.8 g/dL (3.4-5.0) Albumin/Globulin Ratio 0.9 (1.0-1.7) Lipase 43 U/L (73-393) Images: Images PROCEDURE: CT ABDOMEN PELVIS WO CONTRAST CT ABDOMEN+PELVIS WO History: Epigastric and left upper quadrant pain Comparison: CT chest 06/13/2017. Technique: Noncontrast CT of the abdomen and pelvis. Findings: There is patchy nodular consolidation along the right middle lobe. No pleural effusion. The liver, gallbladder, pancreas, spleen, adrenal glands, and kidneys are unremarkable. The stomach is within normal limits. Nonspecific bowel wall thickening in the left upper quadrant jejunal loops. No abnormal small bowel distention or evidence of obstruction. The colon is within normal limits. The bladder is normal. Postsurgical changes from hysterectomy. Right ovarian cyst/follicle measuring 2.7 cm diameter. No intra-abdominal or pelvic free air or free fluid. No adenopathy. 6 mild iliac atherosclerotic calcification. No aneurysm. Tiny fat-containing umbilical hernia. Osseous structures are within normal limits for age. Pseudoarticulation of the transverse processes of L5 with the sacrum. Impression: 1. Nonspecific wall thickening in the left upper abdomen jejunal loops may represent enteritis. No evidence of obstruction. 2. Mild patchy/nodular consolidation in the right middle lobe. Recommend follow-up noncontrast CT chest in 3 months to evaluate for resolution. Assessment/Plan Assessment/Plan Sepsis Acute jejunal enteritis, possible bacterial more likely viral etiology Acute cystitis History of hypertension History of depression/anxiety Admit to hospitalist service for further management Continue IV fluids Continue IV antibiotics Pending urine cultures GI consult Pending stool studies Lovenox for DVT prophylaxis Protonix GI prophylaxis ADA diet CODE STATUS full Discussed with RN and SW Disposition inpatient management as above DPOA: Undesignated Justifications for Admission Other Justification SIM MANE MD August 08, 2021 11:16
--- NOTE | 2021-08-08 12:10 | NUR ---
Patient arrived to room 668 via bed from ER at around 1210. Patient A&OX4. VSS. Complaints of LLQ abd pain 09/19. The patient, NATACHA BILLYCalli Gerson, 46 y/o, F admitted by SIM MANE MD, was given written information regarding hospital policies, unit procedures and contact persons. Valuables were checked and noted. Will continue to monitor.
[2021-08-08] MEDS: IV NORMAL SALINE 1000ML BAG 1,000 ML IV SCH ×2 (13:44→23:34)
[2021-08-08] MEDS: PIPERACILLIN/TAZOBACTAM 3.375 GM in IV NORMAL SALINE 50ML 50 ML IV SCH ×3 (13:47→23:34)
[2021-08-08] MEDS: ENOXAPARIN 40 MG/0.4 ML SYRINGE. SQ SCH ×2 (14:03→21:06)
[2021-08-08] MEDS: HYDROcodone/APAP 5/325MG 1 TAB TABLET PO PRN ×3 (14:03→22:35)
[2021-08-08] MEDS ORDERED: IBUP-1007 PO (14:27)
[2021-08-08] MEDS ORDERED: LISI1TAB37 PO (14:27)
[2021-08-08] MEDS ORDERED: CYCL10TA19 PO (14:29)
[2021-08-08 15:00] VITALS: BP 158/81
[2021-08-08 19:22] VITALS: BP 132/72
[2021-08-08 22:54] VITALS: BP 140/66
[2021-08-09 03:33] VITALS: BP 170/88
[2021-08-09] MEDS: HYDROcodone/APAP 5/325MG 1 TAB TABLET PO PRN ×3 (03:36→17:47)
[2021-08-09] MEDS: PIPERACILLIN/TAZOBACTAM 3.375 GM in IV NORMAL SALINE 50ML 50 ML IV SCH ×3 (06:23→17:45)
[2021-08-09 07:00] VITALS: BP 155/71
[2021-08-09 07:24] LABS: BASO # 0.1 x10^3/uL (0.0-0.2); BASO % 1 % (0-3); EOS # 0.1 x10^3/uL (0.0-0.7); EOS % 1 % (0-3); HEMATOCRIT 38.1 % (36.0-47.0); HEMOGLOBIN 12.7 g/dL (12.0-15.5); LYMPH # 2.3 x10^3/uL (1.0-4.8); LYMPH % 16 % (24-48); MEAN CORPUSCULAR HEMOGLOBIN 32 pg (25-35); MEAN CORPUSCULAR HGB CONC 34 g/dL (31-37); MEAN CORPUSCULAR VOLUME 96 fL (79-100); MONO # 1.1 x10^3/uL (0.0-1.1); MONO % 8 % (0-9); NEUT # 10.7 x10^3/uL (1.8-7.7); NEUT % 75 % (31-73); PLATELET COUNT 325 x10^3/uL (140-400); RED BLOOD COUNT 3.98 x10^6/uL (3.50-5.40); RED CELL DISTRIBUTION WIDTH 13.9 % (11.5-14.5); WHITE BLOOD COUNT 14.3 x10^3/uL (4.0-11.0)
[2021-08-09 07:30] LABS: CALCIUM 8.1 mg/dL (8.5-10.1); CREATININE 0.6 mg/dL (0.6-1.0); GFR 130.2; MAGNESIUM 1.8 mg/dL (1.8-2.4); PHOSPHORUS 2.6 mg/dL (2.6-4.7); POTASSIUM 3.4 mmol/L (3.5-5.1)
--- NOTE | 2021-08-09 08:24 | PDOC ---
[employer] PROGRESS NOTE Date of Service DOS: DATE: 08/09/21 TIME: 08:23 Chief Complaint Chief Complaint Sepsis Acute jejunal enteritis, possible bacterial more likely viral etiology Acute cystitis History of hypertension History of depression/anxiety Admit to hospitalist service for further management Continue IV fluids Continue IV antibiotics Pending urine cultures GI consult Pending stool studies Lovenox for DVT prophylaxis Protonix GI prophylaxis ADA diet CODE STATUS full Discussed with RN and SW Disposition inpatient management as above DPOA: Undesignated History of Present Illness History of Present Illness 46 year old female presenting to the emergency department for epigastric and left upper quadrant abdominal pain that she says has been going on for at least the past 2 days. She says it is sharp and burning and is constant for the past 2 days and that nothing seems to make it better or worse including eating drinking movements or activity. Patient did say that she had a bloody bowel movement this morning that she normally has never had. Her last bowel movement was 3 days ago. She has never had constipation issues and has always been r egular with her bowel movements. She denies any nausea vomiting diarrhea constipation dysuria hematuria vaginal bleeding or vaginal discharge. She has had 2 prior C-sections but no other abdominal surgeries. She is in no acute distress with normal vital signs. 08/09: T-max 100.4 F overnight still with significant nausea and moderate abdominal pain no diarrhea no emesis. Some abdominal cramping she is asking if she can have more than a clear liquid diet will advance to GI soft. Urine culture preliminary with E. coli Vitals/I&O Vitals/I&O: Vital Signs Date Time Temp Pulse Resp B/P (MAP) Pulse Ox O2 Delivery O2 Flow Rate FiO2 08/09/21 07:00 98.4 73 18 155/71 (99) 95 Room Air 98.4 I & O0 08/08/21 08/08/21 08/09/21 15:00 23:00 07:00 Intake Total 1050 ml 1050 ml 150 ml Output Total 1700 ml 625 ml Balance 1050 ml -650 ml -475 ml Physical Exam General: Alert, Oriented X3, Cooperative, mild distress Heart: Regular rate Lungs: Clear Abdomen: Other (LLQ pain) Labs Labs: Laboratory Tests Test 08/08/21 12:22 08/09/21 06:40 Procalcitonin < 0.10 ng/mL (0.00-0.10) White Blood Count 14.3 x10^3/uL (4.0-11.0) Red Blood Count 3.98 x10^6/uL (3.50-5.40) Hemoglobin 12.7 g/dL (12.0-15.5) Hematocrit 38.1 % (36.0-47.0) Mean Corpuscular Volume 96 fL (79-100) Mean Corpuscular Hemoglobin 32 pg (25-35) Mean Corpuscular Hemoglobin Concent 34 g/dL (31-37) Red Cell Distribution Width 13.9 % (11.5-14.5) Platelet Count 325 x10^3/uL (140-400) Neutrophils (%) (Auto) 75 % (31-73) Lymphocytes (%) (Auto) 16 % (24-48) Monocytes (%) (Auto) 8 % (0-9) Eosinophils (%) (Auto) 1 % (0-3) Basophils (%) (Auto) 1 % (0-3) Neutrophils # (Auto) 10.7 x10^3/uL (1.8-7.7) Lymphocytes # (Auto) 2.3 x10^3/uL (1.0-4.8) Monocytes # (Auto) 1.1 x10^3/uL (0.0-1.1) Eosinophils # (Auto) 0.1 x10^3/uL (0.0-0.7) Basophils # (Auto) 0.1 x10^3/uL (0.0-0.2) Sodium Level 144 mmol/L (136-145) Potassium Level 3.4 mmol/L (3.5-5.1) Chloride Level 111 mmol/L (98-107) Carbon Dioxide Level 23 mmol/L (21-32) Anion Gap 10 (6-14) Blood Urea Nitrogen 4 mg/dL (7-20) Creatinine 0.6 mg/dL (0.6-1.0) Estimated GFR (Cockcroft-Gault) 130.2 Glucose Level 85 mg/dL (70-99) Calcium Level 8.1 mg/dL (8.5-10.1) Phosphorus Level 2.6 mg/dL (2.6-4.7) Magnesium Level 1.8 mg/dL (1.8-2.4) Assessment and Plan Assessmemt and Plan Problems Medical Problems: (1) Enteritis Status: Acute (2) Pyelonephritis Status: Acute (3) Sepsis Status: Acute Comment Review of Relevant I have reviewed the following items nito (where applicable) has been applied. Medications: Current Medications Medications (Trade) Dose Ordered Sig/Emily Route PRN Reason Start Time Stop Time Status Last Admin Dose Admin Ceftriaxone Sodium (Rocephin) 2 gm 1X ONCE IVP 08/08/21 09:15 08/08/21 09:16 DC 08/08/21 10:03 Ondansetron HCl (Zofran) 4 mg PRN Q6HRS PRN IVP NAUSEA/VOMITING, 1st CHOICE 08/08/21 11:15 08/09/21 03:40 Sodium Chloride 1,000 ml @ 100 mls/hr Q10H IV 08/08/21 12:00 08/08/21 23:34 Acetaminophen (Tylenol) 650 mg PRN Q4HRS PRN PO TEMP OVER 100.4F OR MILD PAIN 08/08/21 11:15 08/09/21 03:37 Piperacillin Sod/ Tazobactam Sod 3.375 gm/Sodium Chloride 50 ml @ 100 mls/hr Q6HRS IV 08/08/21 12:00 08/09/21 06:23 Enoxaparin Sodium (Lovenox 40mg Syringe) 40 mg BID SQ 08/08/21 12:00 08/08/21 21:06 Acetaminophen/ Hydrocodone Bitart (Lortab 5/325) 1 tab PRN Q4HRS PRN PO MILD PAIN 1-3 08/08/21 11:15 08/09/21 03:36 Justifications for Admission Other Justification Sepsis GARTH STONE MD August 09, 2021 08:24
[2021-08-09] MEDS ORDERED: POTASSIUM CHLORIDE 20 MEQ TABLET.ER. PO ONE (08:30)
[2021-08-09] MEDS ORDERED: MAGNESIUM SULFATE 1GM 100 ML IV ONE (09:00)
[2021-08-09] MEDS: ENOXAPARIN 40 MG/0.4 ML SYRINGE. SQ SCH ×2 (10:00→20:34)
[2021-08-09 10:35] VITALS: BP 154/74
--- NOTE | 2021-08-09 11:16 | PDOC2 ---
GI CONSULT Reason For Consult: jejunitis HPI: HPI: 46 year old female presenting to the emergency department for an episode of rectaol bleeding andw as found to have an E Coli UTI, and a CT that demonstrated a small fat containing umbilical hernia and jejunitis. WBC elevated to 17.9 with normal LFTs on admit.She also admits to epigastric and left upper quadrant abdominal pain that she says has been going on for at least the past 2 days. Nafisa pink had been taking Ibuproifen 2 tabs daily. She ashley never had an EGD or colonoscoipy. She says it is sharp and burning and is constant for the past 2 days and that nothing seems to make it better or worse including eating drinking movements or activity. Patient did say that she had a bloody bowel movement this morning that she normally has never had. Her last bowel movement was 3 days ago. She has never had constipation issues and has always been regular with her bowel movements. She denies any nausea vomiting diarrhea constipation dysuria hematuria vaginal bleeding or vaginal discharge. She has had 2 prior C-sections but no other abdominal surgeries. She is in no acute distress with normal vital signs. PMH: PMH: Past Medical/Surgical History: PMH/PSH: Past Medical History: Anxiety, Depression, High Cholesterol, Hypertension Past Surgical History: , Hysterectomy, Ankle Allergies: Allergies: Coded Allergies: adhesive (Verified Allergy, Intermediate, 06/15/17) Family History: Family History: Reviewed with no relative findings in the chart Social History: Social History: Smoking Status: Current Every Day Smoker Alcohol Use: None Drug Use: None Current Medications: Current Medications Current Medications Ondansetron HCl (Zofran) 4 mg 1X ONCE IVP Last administered on 08/08/21at 08:14; Start 08/08/21 at 08:00; Stop 08/08/21 at 08:01; Status DC Pantoprazole Sodium (PROTONIX VIAL for IV PUSH) 40 mg 1X ONCE IVP Last administered on 08/08/21at 08:14; Start 08/08/21 at 08:00; Stop 08/08/21 at 08:01; Status DC Multi-Ingredient Mouthwash/Gargle (Gi Cocktail) 20 ml 1X ONCE SWSW Last administered on 08/08/21at 08:15; Start 08/08/21 at 08:00; Stop 08/08/21 at 08:01; Status DC Morphine Sulfate (Morphine Sulfate) 4 mg 1X PRN IV PAIN Last administered on 08/08/21at 08:15; Start 08/08/21 at 08:00 Sodium Chloride 1,000 ml @ 1,000 mls/hr 1X ONCE IV Last administered on 08/08/21at 08:16; Start 08/08/21 at 08:00; Stop 08/08/21 at 08:59; Status DC Ceftriaxone Sodium (Rocephin) 2 gm 1X ONCE IVP Last administered on 08/08/21at 10:03; Start 08/08/21 at 09:15; Stop 08/08/21 at 09:16; Status DC Active Scripts Active Amlodipine Besylate 10 Mg Tablet 10 Mg PO DAILY Lisinopril-Hctz 10-12.5 Mg Tab (Lisinopril/Hydrochlorothiazide) 1 Each Tablet 1 Tab PO DAILY Levaquin (Levofloxacin) 500 Mg Tablet 500 Mg PO DAILY 8 Days Prednisone 20 Mg Tablet 20 Mg PO DAILY 4 Days Reported Tylenol (Acetaminophen) 325 Mg Tablet 325 Mg PO Q6HRS PRN Hydroxyzine Hcl 25 Mg Tablet 50 Mg PO TID [lisinopril-HCTZ] 20/12.5 Mg PO BID [amlodipine] 10 Mg 10 PO DAILY Latuda (Lurasidone Hcl) 60 Mg Tablet 60 Mg PO DAILY Citalopram Hbr (Citalopram Hydrobromide) 20 Mg Tablet 1 Tab PO DAILY Trazodone Hcl 100 Mg Tablet 1 Tab PO QHS Social History: Smoke: 1 pack per day ALCOHOL: none Drugs: None ROS: GENERAL: Denies weakness SKIN: No bruising, hair changes or rashes. EYES: No blurred, double or loss of vision. NOSE AND THROAT: No history of nosebleeds, hoarseness or sore throat. HEART: No history of palpitations, chest pain or shortness of breath on exertion. LUNGS: Denies cough, hemoptysis, wheezing or shortness of breath. GASTROINTESTINAL: Denies changes in appetite, nausea, vomiting, diarrhea or constipation. GENITOURINARY: No history of frequency, urgency, hesitancy or nocturia. NEUROLOGIC: Denies history of numbness, tingling, or tremor. PSYCHIATRIC: No history of panic, anxiety or depression. ENDOCRINE: No history of heat or cold intolerance, polyuria or polydipsia. EXTREMITIES: Denies joint pain, pain on walking or stiffness. VItals: Vitals: Vital Signs Date Time Temp Pulse Resp B/P (MAP) Pulse Ox O2 Delivery O2 Flow Rate FiO2 08/09/21 10:35 98.0 65 18 154/74 (100) 96 Room Air 98.0 Labs: Labs: Laboratory Tests Test 08/08/21 12:22 08/09/21 06:40 Procalcitonin < 0.10 ng/mL (0.00-0.10) White Blood Count 14.3 x10^3/uL (4.0-11.0) Red Blood Count 3.98 x10^6/uL (3.50-5.40) Hemoglobin 12.7 g/dL (12.0-15.5) Hematocrit 38.1 % (36.0-47.0) Mean Corpuscular Volume 96 fL (79-100) Mean Corpuscular Hemoglobin 32 pg (25-35) Mean Corpuscular Hemoglobin Concent 34 g/dL (31-37) Red Cell Distribution Width 13.9 % (11.5-14.5) Platelet Count 325 x10^3/uL (140-400) Neutrophils (%) (Auto) 75 % (31-73) Lymphocytes (%) (Auto) 16 % (24-48) Monocytes (%) (Auto) 8 % (0-9) Eosinophils (%) (Auto) 1 % (0-3) Basophils (%) (Auto) 1 % (0-3) Neutrophils # (Auto) 10.7 x10^3/uL (1.8-7.7) Lymphocytes # (Auto) 2.3 x10^3/uL (1.0-4.8) Monocytes # (Auto) 1.1 x10^3/uL (0.0-1.1) Eosinophils # (Auto) 0.1 x10^3/uL (0.0-0.7) Basophils # (Auto) 0.1 x10^3/uL (0.0-0.2) Sodium Level 144 mmol/L (136-145) Potassium Level 3.4 mmol/L (3.5-5.1) Chloride Level 111 mmol/L (98-107) Carbon Dioxide Level 23 mmol/L (21-32) Anion Gap 10 (6-14) Blood Urea Nitrogen 4 mg/dL (7-20) Creatinine 0.6 mg/dL (0.6-1.0) Estimated GFR (Cockcroft-Gault) 130.2 Glucose Level 85 mg/dL (70-99) Calcium Level 8.1 mg/dL (8.5-10.1) Phosphorus Level 2.6 mg/dL (2.6-4.7) Magnesium Level 1.8 mg/dL (1.8-2.4) Imaging: Imaging: IMAGING REPORT Signed PATIENT: TANMAY BILLY ACCOUNT: [id number] : 1975 LOCATION: ER AGE: 46 SEX: F EXAM STATUS: REG ER ORD. PHYSICIAN: WALKER NASSAR DO REASON: epigastric and LUQ pain PROCEDURE: CT ABDOMEN PELVIS WO CONTRAST CT ABDOMEN+PELVIS WO History: Epigastric and left upper quadrant pain Comparison: CT chest 06/13/2017. Technique: Noncontrast CT of the abdomen and pelvis. Findings: There is patchy nodular consolidation along the right middle lobe. No pleural effusion. The liver, gallbladder, pancreas, spleen, adrenal glands, and kidneys are unremarkable. The stomach is within normal limits. Nonspecific bowel wall thickening in the left upper quadrant jejunal loops. No abnormal small bowel distention or evidence of obstruction. The colon is within normal limits. The bladder is normal. Postsurgical changes from hysterectomy. Right ovarian cyst/follicle measuring 2.7 cm diameter. No intra-abdominal or pelvic free air or free fluid. No adenopathy. 6 mild iliac atherosclerotic calcification. No aneurysm. Tiny fat-containing umbilical hernia. Osseous structures are within normal limits for age. Pseudoarticulation of the transverse processes of L5 with the sacrum. Impression: 1. Nonspecific wall thickening in the left upper abdomen jejunal loops may represent enteritis. No evidence of obstruction. 2. Mild patchy/nodular consolidation in the right middle lobe. Recommend follow-up noncontrast CT chest in 3 months to evaluate for resolution. PE: GEN: NAD HEENT: Atraumatic, PERRLA LUNGS: CTAB HEART: RRR, no murmurs ABD: NABS, S/ND/NT, no masses EXTREMITY: No edema SKIN: No rashes, no jaundice NEURO/PSYCH: A & O 3 A/P: A/P: A&P 1) Jejunitis: may be reactive to UTI. Will monitor as diet advances. Consider CTE vs CTA 2) Rectal bleed: CT unrevealing. Monitor as UTI us treated. Consider outpatient colonoscopy fo rectal bleed/screen 3) Umbilical hernia: small and fat continuing on CT 4) epigastric pain: Consider EGD given heavy NSAID use TRACY DODGE MD August 09, 2021 11:16
[2021-08-09 15:00] VITALS: BP 128/79
[2021-08-09 19:55] VITALS: BP 150/91
[2021-08-09 23:07] VITALS: BP 151/78
[2021-08-10] MEDS: PIPERACILLIN/TAZOBACTAM 3.375 GM in IV NORMAL SALINE 50ML 50 ML IV SCH ×3 (00:24→11:11)
[2021-08-10] MEDS: HYDROcodone/APAP 5/325MG 1 TAB TABLET PO PRN ×3 (00:30→11:13)
[2021-08-10 03:26] VITALS: BP 160/88
[2021-08-10 05:56] LABS: CALCIUM 7.9 mg/dL (8.5-10.1); CREATININE 0.6 mg/dL (0.6-1.0); GFR 130.2; POTASSIUM 3.7 mmol/L (3.5-5.1)
[2021-08-10 06:03] LABS: BASO # 0.1 x10^3/uL (0.0-0.2); BASO % 1 % (0-3); EOS # 0.2 x10^3/uL (0.0-0.7); EOS % 2 % (0-3); HEMATOCRIT 35.6 % (36.0-47.0); HEMOGLOBIN 12.1 g/dL (12.0-15.5); LYMPH # 2.8 x10^3/uL (1.0-4.8); LYMPH % 26 % (24-48); MEAN CORPUSCULAR HEMOGLOBIN 33 pg (25-35); MEAN CORPUSCULAR HGB CONC 34 g/dL (31-37); MEAN CORPUSCULAR VOLUME 96 fL (79-100); MONO # 1.1 x10^3/uL (0.0-1.1); MONO % 10 % (0-9); NEUT # 6.7 x10^3/uL (1.8-7.7); NEUT % 62 % (31-73); PLATELET COUNT 317 x10^3/uL (140-400); RED BLOOD COUNT 3.71 x10^6/uL (3.50-5.40); RED CELL DISTRIBUTION WIDTH 14.1 % (11.5-14.5); WHITE BLOOD COUNT 10.8 x10^3/uL (4.0-11.0)
[2021-08-10 07:00] VITALS: BP 148/68
[2021-08-10] MEDS: ENOXAPARIN 40 MG/0.4 ML SYRINGE. SQ SCH (08:46)
--- NOTE | 2021-08-10 10:26 | PDOC ---
[employer] PROGRESS NOTE Date of Service DOS: DATE: 08/10/21 TIME: 10:24 Chief Complaint Chief Complaint Sepsis Acute jejunal enteritis, possible bacterial more likely viral etiology Acute cystitis History of hypertension History of depression/anxiety Admit to hospitalist service for further management Continue IV fluids Continue IV antibiotics Pending urine cultures GI consult Pending stool studies Lovenox for DVT prophylaxis Protonix GI prophylaxis ADA diet CODE STATUS full Discussed with RN and SW Disposition inpatient management as above DPOA: Undesignated History of Present Illness History of Present Illness 08/10/2021 Patient seen and examined Discussed with RN Chart reviewed The patient states she feels good wants to go home 46 year old female presenting to the emergency department for epigastric and left upper quadrant abdominal pain that she says has been going on for at least the past 2 days. She says it is sharp and burning and is constant for the past 2 days and that nothing seems to make it better or worse including eating drinking movements or activity. Patient did say that she had a bloody bowel movement this morning that she normally has never had. Her last bowel movement was 3 days ago. She has never had constipation issues and has always been regular with her bowel movements. She denies any nausea vomiting diarrhea constipation dysuria hematuria vaginal bleeding or vaginal discharge. She has had 2 prior C-sections but no other abdominal surgeries. She is in no acute distress with normal vital signs. 08/09: T-max 100.4 F overnight still with significant nausea and moderate abdominal pain no diarrhea no emesis. Some abdominal cramping she is asking if she can have more than a clear liquid diet will advance to GI soft. Urine culture preliminary with E. coli Vitals/I&O Vitals/I&O: Vital Signs Date Time Temp Pulse Resp B/P (MAP) Pulse Ox O2 Delivery O2 Flow Rate FiO2 08/10/21 08:25 Room Air 08/10/21 07:00 98.2 63 18 148/68 (94) 96 98.2 I & O 08/09/21 08/09/21 08/10/21 15:00 23:00 07:00 Intake Total 1160 ml 2865 ml 610 ml Output Total 400 ml 450 ml 400 ml Balance 760 ml 2415 ml 210 ml Physical Exam General: Alert, Oriented X3, Cooperative, mild distress Heart: Regular rate Lungs: Clear Abdomen: Other (LLQ pain) Labs Labs: Laboratory Tests Test 08/10/21 05:05 White Blood Count 10.8 x10^3/uL (4.0-11.0) Red Blood Count 3.71 x10^6/uL (3.50-5.40) Hemoglobin 12.1 g/dL (12.0-15.5) Hematocrit 35.6 % (36.0-47.0) Mean Corpuscular Volume 96 fL (79-100) Mean Corpuscular Hemoglobin 33 pg (25-35) Mean Corpuscular Hemoglobin Concent 34 g/dL (31-37) Red Cell Distribution Width 14.1 % (11.5-14.5) Platelet Count 317 x10^3/uL (140-400) Neutrophils (%) (Auto) 62 % (31-73) Lymphocytes (%) (Auto) 26 % (24-48) Monocytes (%) (Auto) 10 % (0-9) Eosinophils (%) (Auto) 2 % (0-3) Basophils (%) (Auto) 1 % (0-3) Neutrophils # (Auto) 6.7 x10^3/uL (1.8-7.7) Lymphocytes # (Auto) 2.8 x10^3/uL (1.0-4.8) Monocytes # (Auto) 1.1 x10^3/uL (0.0-1.1) Eosinophils # (Auto) 0.2 x10^3/uL (0.0-0.7) Basophils # (Auto) 0.1 x10^3/uL (0.0-0.2) Sodium Level 143 mmol/L (136-145) Potassium Level 3.7 mmol/L (3.5-5.1) Chloride Level 112 mmol/L (98-107) Carbon Dioxide Level 24 mmol/L (21-32) Anion Gap 7 (6-14) Blood Urea Nitrogen 5 mg/dL (7-20) Creatinine 0.6 mg/dL (0.6-1.0) Estimated GFR (Cockcroft-Gault) 130.2 Glucose Level 81 mg/dL (70-99) Calcium Level 7.9 mg/dL (8.5-10.1) Magnesium Level 2.0 mg/dL (1.8-2.4) Assessment and Plan Assessmemt and Plan Problems Medical Problems: (1) Enteritis Status: Acute (2) Pyelonephritis Status: Acute (3) Sepsis Status: Acute Resolving enteritis/sepsis Resolving pyelonephritis Acute jejunal enteritis, possible bacterial more likely viral etiology Acute cystitis History of hypertension History of depression/anxiety Plan Hope to discharge later today For now continue the following; Await further GI input Continue IV fluids Continue IV antibiotics Pending urine cultures Pending stool studies Lovenox for DVT prophylaxis Protonix GI prophylaxis ADA diet CODE STATUS full Discussed with RN and SW Disposition inpatient management as above DPOA: Undesignated Comment Review of Relevant I have reviewed the following items nito (where applicable) has been applied. Justifications for Admission Other Justification Sepsis ASH LANDRUM III DO August 10, 2021 10:26
[2021-08-10] MEDS ORDERED: CIPR500T94 PO (10:29)
[2021-08-10] MEDS ORDERED: METR-34 PO (10:29)
[2021-08-10] MEDS ORDERED: CYCLOBENZAPRINE 10 MG TABLET. PO PRN (10:30)
[2021-08-10] MEDS ORDERED: IBUPROFEN 200 MG TABLET. PO PRN (10:45)
[2021-08-10 10:48] VITALS: BP 141/76
[2021-08-10] MEDS ORDERED: hydroCHLOROthiazide 25 MG TABLET PO SCH (11:00)
[2021-08-10] MEDS ORDERED: LISINOPRIL 20 MG TABLET PO SCH (11:00)
--- NOTE | 2021-08-10 11:12 | EKG ---
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
[2021-08-10 11:15] VITALS: BP 141/76
--- NOTE | 2021-08-10 11:56 | NUR ---
Spoke to Sakina Kelly APRN from GI, gave okay to discharge. Office will call pt at home to schedule a colonoscopy.
--- NOTE | 2021-08-10 12:13 | PDOC ---
Date of Service: DATE: 08/10/21 TIME: 12:05 Subjective: Subjective: Feels better after stooling. Formed stool, never diarrhea - has actually been constipated lately which is unusual. No bleeding here. Tolerating PO. Never n/v. Pain improved - was epigastric to LUQ region, now just kind on left side sometimes. Objective: Objective: D/w nurse - pt needs to discharge today, must return home to care for her mother, awaiting GI recs for "enteritis" because she is on IV atbx. Vital Signs: Vital Signs Date Time Temp Pulse Resp B/P (MAP) Pulse Ox O2 Delivery O2 Flow Rate FiO2 08/10/21 11:15 68 141/76 08/10/21 11:13 Room Air 08/10/21 10:48 98.5 18 96 98.5 Labs: CULTURE URINE Final GREATER THAN 100,000 CFU/ML ESCHERICHIA COLIon 08/09/21 at 0850. BLOOD CULTURE Preliminary NO GROWTH AFTER 2 DAYS Imaging: CT A/P 08/08 Findings: There is patchy nodular consolidation along the right middle lobe. No pleural effusion. The liver, gallbladder, pancreas, spleen, adrenal glands, and kidneys are unremarkable. The stomach is within normal limits. Nonspecific bowel wall thickening in the left upper quadrant jejunal loops. No abnormal small bowel distention or evidence of obstruction. The colon is within normal limits. The bladder is normal. Postsurgical changes from hysterectomy. Right ovarian cyst/follicle measuring 2.7 cm diameter. No intra-abdominal or pelvic free air or free fluid. No adenopathy. 6 mild iliac atherosclerotic calcification. No aneurysm. Tiny fat-containing umbilical hernia. Osseous structures are within normal limits for age. Pseudoarticulation of the transverse processes of L5 with the sacrum. Impression: 1. Nonspecific wall thickening in the left upper abdomen jejunal loops may represent enteritis. No evidence of obstruction. 2. Mild patchy/nodular consolidation in the right middle lobe. Recommend follow-up noncontrast CT chest in 3 months to evaluate for resolution. PE: GEN: NAD LUNGS: CTAB HEART: RRR, ABD: NABS, S/NT, obese NEURO/PSYCH: A & O 3 A/P: Upper abdominal discomfort - resolving Leukocytosis - resolved UTI - per primary Abnormal CT - "nonspecific bowel wall thickening in the left upper quadrant j ejunal loops" Rectal bleeding - seems mild, prior to admission - ?associated w/ constipation Constipation - new/resolved CRC screen - none NSAID use -- DC per primary. Does not need atbx for any GI issue. Unclear significance of "enteritis" on CT report - never vomiting or diarrhea, upper abd pain resolved after stooling. No recurrent bleeding - Hgb remains WNL. 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 Our office will contact to schedule colonoscopy +/- EGD as outpt. Justicifation of Admission Dx: Justifications for Admission: Justification of Admission Dx: Yes RAMY MOLINA August 10, 2021 12:13
[2021-08-10] MEDS ORDERED: HYDR-2761 PO (12:32)
--- NOTE | 2021-08-10 14:15 | NUR ---
Discharge instructions given. Answered questions and concerns. Verbalized understanding. Discharged home accompanied by family member. Escorted out by w/c.
== END 2021-08-10 14:30 | disposition home or self-care (01) | DRG 872 ==
LOC: ER 07:39 → 6 SOUTH 09:05 → OBSVTOIN 11:17
PROVIDERS: ADMIT Internal Medicine; ATTEND Internal Medicine
DX: A41.9 Sepsis, unspecified organism (principal); N30.00 Acute cystitis without hematuria; B96.20 Unspecified Escherichia coli [E. coli] as the cause of diseases classified elsewhere; E78.00 Pure hypercholesterolemia, unspecified; F17.210 Nicotine dependence, cigarettes, uncomplicated; I10 Essential (primary) hypertension; K52.9 Noninfective gastroenteritis and colitis, unspecified; N83.201 Unspecified ovarian cyst, right side; Z90.710 Acquired absence of both cervix and uterus; F32.A Depression, unspecified; F41.9 Anxiety disorder, unspecified
CPT/HCPCS: 36415; 74176; 80048; 80053; 81001; 83605; 83690; 83735; 84100; 84145; 85025; 87040; 87086; 87177; 87209; 99406; C9113; J0696; J1650; J2270; J2405; J2543; J3475; J7030; 87077; 87186; 93005; G0378; G0379